=== PATIENT | female | born 1965 | race Caucasian/White ===

== ENCOUNTER → 2021-06-01 16:58 | Outpatient (CLI) | payer OTHER, SELFPAY ==
--- NOTE | ~2021-06-01 | XR_ITS ---
XR hip BI 2V w AP pelvis 06/01/2021 17:29 Indication: Back pain Procedure: AP view of the pelvis and 2 views of each hip Comparison: No prior studies for comparison. Findings: There is mild osteoarthritis of the hips. There is mild osteitis pubis. Sacral foramen are symmetric. There are pelvic phleboliths. Impression: 1: Mild osteoarthritis of the hips. Reviewed, dictated and finalized at location A. Impression: 1: Mild osteoarthritis of the hips.
== END ==
DX: M16.0 Bilateral primary osteoarthritis of hip (principal)
CPT/HCPCS: 73521

== ENCOUNTER 2024-12-17 15:33 | Outpatient (CLI) | payer OTHER, SELFPAY ==
--- NOTE | ~2024-12-17 | US_ITS ---
EXAMINATION: US venous doppler LE RT, 12/17/2024 15:35 CDT HISTORY: DEFORMITY OF RT LOWER LEG COMPARISON: None Technique: Hodges-scale and color Doppler images were attempted of the lower saphenofemoral junction, common femoral vein,superficial femoral vein, proximal deep femoral vein, proximal deep femoral vein, popliteal vein and posterior tibial veins. Findings: Deep Venous System:Normal flow, augmentation and compressibility. No echogenic thrombus identified. Superficial Venous SystemNo superficial thrombophlebitis. Soft tissues: Soft tissues are unremarkable. Impression: Negative for DVT. Reviewed, dictated and finalized at location P. Impression: Negative for DVT.
== END 2024-12-17 15:34 | disposition home or self-care (01) ==
LOC: GOSHIMG 15:33
DX: M21.961 Unspecified acquired deformity of right lower leg (principal)
CPT/HCPCS: 93971